=== PATIENT | male | born 1950 | race Hispanic/Latino ===

== ENCOUNTER → 2018-01-08 | Outpatient (CLI) | payer OTHER ==
[~2018-01-08] MED LIST: REGADENOSON 0.4 MG/5 ML SYR IV ONE
--- NOTE | 2018-01-09 08:37 | Cardiology Report ---
DATE OF STUDY: LEXISCAN NUCLEAR STRESS TEST INDICATION: Dyspnea. TECHNIQUE: The patient was given 12 millicuries of Myoview. Resting images were obtained in the horizontal long axis, vertical long axis, and short axis. Patient was then hooked up to the EKG machine and Lexiscan was infused over 15 seconds. During Lexiscan infusion, the patient had no chest pain and no EKG changes. One minute after completion of Lexiscan infusion, the patient was given 33 millicuries of Myoview. Stress images were obtained 30 minutes after completion of Lexiscan infusion. Stress images were obtained in the horizontal long axis, vertical long axis and short axis. RESULTS 1. The resting EKG demonstrated normal sinus rhythm with some nonspecific S/T and T-wave changes. 2. There were no EKG changes during Lexiscan infusion and no symptoms during Lexiscan infusion. 3. The resting images demonstrated a large area of moderate diminished perfusion in the inferior and posterior marie and septum. 4. The stress images demonstrated the same large perfusion defect of moderate intensity in the inferior wall, posterior wall and septum. 5. There was mild to moderate left ventricular dysfunction with an ejection fraction of 43%. CONCLUSION: The patient has a fixed defect in the inferior and posterior marie and septum, which could possibly represent myocardial scar. The possibility of diaphragmatic attenuation cannot be excluded. Job#: [id number]
== END ==
LOC: NM 10:18
PROVIDERS: ATTEND Internal Medicine Cardiovascular Disease
DX: I25.10 Atherosclerotic heart disease of native coronary artery without angina pectoris (principal)
CPT/HCPCS: 78452; 93017; A9502; J2785